=== PATIENT | male | born 1990 | race Caucasian/White ===

== ENCOUNTER 2017-01-13 06:32 | Day surgery (SDC) | payer OTHER ==
[~2017-01-13] VITALS: Ht 175.3 cm; Wt 86.2 kg
[~2017-01-13 06:32] MED LIST: NORCO 5-325 TA1 EACH PO; OMEPRAZOLE40 MG PO; ZOFRAN ODT4 MG SL
--- NOTE | 2017-01-13 07:19 | NUR ---
THIS PT DID NOT WANT PRAYER. HE HAS GOOD FAMILY SUPPORT- HIS SPOUSE AND CHILD ARE WITH HIM. HE IS IN VERY GOOD ATTITUDE.
--- NOTE | 2017-01-13 07:52 | NUR ---
01/13/17 0752 Vickie Peace 6386-PATIENT ARRIVED TO PACU ON 3L NC O2 SAT 100% WEANED TO RA. PATIENT AWAKE DENIES PAIN OR NAUSEA.
--- NOTE | 2017-01-16 12:08 | OR ---
[facility] [address] [place], [place] [address] Signed DATE OF PROCEDURE: 01/13/17 PREOPERATIVE DIAGNOSES Epigastric abdominal pain. Nausea and vomiting. POSTOPERATIVE DIAGNOSES Diffuse moderate gastritis. Small type 1 hiatal hernia. PROCEDURE: EGD with MITESH test and biopsies of the antrum. ESTIMATED BLOOD LOSS: None. INDICATIONS Derek is a 26-year-old gentleman, asked to see me for upper endoscopy. He reminded me I removed his appendix when he was 17. He also told me he has a twin brother that lives about an hour away. He was worried because his twin brother had appendicitis and later developed small-bowel obstruction and had to have surgery. More recently, Remigio said he has been under a lot of stress although he did not elaborate. He said he is having epigastric pain and nausea and vomiting. He said it has been about a year. He has been missing work. He also likes to drink alcohol little bit and smoke marijuana. I explained to Derek that does not help. He had been to his primary care provider. He had been started on omeprazole and some Zofran and says overall he is feeling a little better. He was asked to see me for an upper endoscopy. In the office I met with Derek and his older sister and we reviewed his current situation. I gave him a pamphlet on upper endoscopy and we reviewed the nature of that test along with its risks including but not limited to gas, bloating, crampy abdominal pain, bleeding, perforation requiring surgery, and missed diagnosis. We also discussed the need for IV conscious sedation. He had expressed understanding and wished to proceed. PROCEDURE NOTE Derek was taken into our endoscopy suite and placed in the supine semi-recumbent position. The posterior oropharynx was anesthetized with Hurricaine spray. A bite block was utilized for the case. The adult gastroscope was introduced and advanced under direct visualization with the camera. He was given 7 mg of Versed and 100 mcg of fentanyl to cover the case. Even then he was a bit awake. The scope was passed out into the duodenum itself. The duodenum and pyloric channel were unremarkable. However his stomach show e d moderate erythematous changes throughout consistent with moderate gastritis even though he has been on omeprazole for at least a couple of weeks. Upon retroflexion of the scope, I can see that some of the stomach is being pulled up into the hiatal hernia on the one side representing just a small type 1 hiatal hernia. We saw Electronically Signed By: LROI TAN MD 01/16/17 1208 PATIENT NAME: DEREK CHOI OPERATIVE REPORT DATE OF : 88 PHYSICIAN: LORI TAN MD REPORT #: [id number] REPORT IS CONFIDENTIAL AND NOT TO BE RELEASED WITHOUT AUTHORIZATION [address] [address] Signed no obvious ulcerations, no gastric or esophageal varices. The scope was withdrawn up through the area of the GE junction, which was compliant without stricture. He has very minimal disruption to the Z-line. There was no Shoemaker mucosa, no distal esophagitis. His middle and upper esophagus were unremarkable. After this, the gas was suctioned out and the gastroscope removed. Derek tolerated his procedure quite well. RECOMMENDATIONS I will see Derek back in my office in 7-14 days to review his results. He should strongly consider abstaining from alcohol and smoking and could double his Omeprazole for 4-6 weeks to see if we can clear up the stomach. MD GABINO De La Cruz/Modl /[id number] cc: BABATUNDE GILES MD Electronically Signed By: LORI TAN MD 01/16/17 1208 PATIENT NAME: DEREK CHOIN OPERATIVE REPORT DATE OF : 88 PHYSICIAN: LORI TAN MD REPORT #: [id number] REPORT IS CONFIDENTIAL AND NOT TO BE RELEASED WITHOUT AUTHORIZATION
== END 2017-01-13 08:16 | disposition home or self-care (01) ==
LOC: DS 06:32 → OPS 06:32 → DS 06:45 → OPS 08:16
PROVIDERS: Colon & Rectal Surgery
PROC: 0DB68ZX Excision of Stomach, Via Natural or Artificial Opening Endoscopic, Diagnostic (ICD-10-PCS; principal; 2017-01-13 06:45)
DX: K44.9 Diaphragmatic hernia without obstruction or gangrene (principal); K29.50 Unspecified chronic gastritis without bleeding; K21.9 Gastro-esophageal reflux disease without esophagitis; F17.210 Nicotine dependence, cigarettes, uncomplicated; Z90.49 Acquired absence of other specified parts of digestive tract; Z98.890 Other specified postprocedural states; Z98.818 Other dental procedure status; Z79.899 Other long term (current) drug therapy
CPT/HCPCS: 86677; 99152; 99153; J2250; J3010; J7120

== ENCOUNTER 2017-10-18 21:53 | Emergency (ER) | payer OTHER ==
[~2017-10-18] VITALS: Ht 175.3 cm; Wt 86.2 kg
[2017-10-18] MEDS ORDERED: NORCO 5-325 TA1 EACH PO (22:42)
== END 2017-10-18 22:53 | disposition home or self-care (01) ==
LOC: ED 21:53
DX: S43.101A Unspecified dislocation of right acromioclavicular joint, initial encounter (principal); F17.200 Nicotine dependence, unspecified, uncomplicated; V00.131A Fall from skateboard, initial encounter
CPT/HCPCS: 71046; 73030; 99283

== ENCOUNTER 2020-01-14 14:52 | Emergency (ER) | payer OTHER ==
[~2020-01-14] VITALS: Ht 175.3 cm; Wt 86.2 kg
[2020-01-14] MEDS ORDERED: METHADOSE40 MG PO (15:04)
--- NOTE | 2020-01-14 22:14 | EKG ---
[facility] [address] [facility] [place], [place] [address] Signed Normal sinus rhythm Normal ECG No previous ECGs available Confirmed by BAKARI PARTIDA MD ([id number]) on 01/14/2020 10:13:54 PM Electronically Signed By: BAKARI PARTIDA MD 01/14/20 2214 PATIENT NAME: SAJI CHOI Electrocardiogram DATE OF : 88 PHYSICIAN: BAKARI PARTIDA MD REPORT #: [id number] REPORT IS CONFIDENTIAL AND NOT TO BE RELEASED WITHOUT AUTHORIZATION
== END 2020-01-14 17:19 | disposition home or self-care (01) ==
LOC: ED 14:52
DX: R56.9 Unspecified convulsions (principal); F17.200 Nicotine dependence, unspecified, uncomplicated; Z72.820 Sleep deprivation
CPT/HCPCS: 80053; 81001; 85025; 93005; 93010; 99285-25; G0480

== ENCOUNTER 2020-11-21 23:13 | Emergency (ER) | payer OTHER ==
[~2020-11-21] VITALS: Ht 175.3 cm; Wt 92.5 kg
[~2020-11-21 23:13] MED LIST changes: +METHADOSE40 MG PO
--- OUTSIDE RECORDS SUMMARY | 2020-11-21 23:16 | XMS ---
PreManage Notification: SAJI CHOI Security We[employer]her [employer]ger Events No recent Security Events currently on file CRITERIA MET - [facility] - 2 Visits in 30 Days CARE PROVIDERS There are no care providers on record at this time. Madeleine has no Care Guidelines for this patient. Leslie VISIT COUNT (12 MO.) [facility] T[facility] 3 NOTE: Visits indicate total known visits. ED/C VISIT TRACKING (12 MO.) 11/21/2020 23:13 [facility] TYPE: Emergency COMPLAINT: - RT SHOULDER PAIN/INJURY 11/21/2020 20:46 [facility] TYPE: Emergency COMPLAINT: - RT SHOULDER PAIN/INJURY 01/14/2020 14:53 [facility] TYPE: Emergency COMPLAINT: - POSSIBLE SEIZURE DIAGNOSES: - Nicotine dependence, unspecified, uncomplicated - Sleep deprivation - Unspecified convulsions INPATIENT VISIT TRACKING (12 MO.) No inpatient visits to display in this time frame [email or web address]
== END 2020-11-22 02:50 | disposition home or self-care (01) ==
LOC: ED 23:13
DX: S43.101A Unspecified dislocation of right acromioclavicular joint, initial encounter (principal); W17.89XA Other fall from one level to another, initial encounter; F17.200 Nicotine dependence, unspecified, uncomplicated; Z79.899 Other long term (current) drug therapy
CPT/HCPCS: 73030; 99283-25